=== PATIENT | female | born 1990 | race Caucasian/White ===

== ENCOUNTER 2018-05-24 10:39 | Emergency (ER) | payer MEDICAID, OTHER ==
[2018-05-24] MEDS: morphine LIQ (10 MG/5 ML) CUP PO (11:01)
[2018-05-24] MEDS: ONDANSETRON (ODT) 4 MG TAB ODT (11:04)
== END 2018-05-24 11:28 | disposition home or self-care (01) ==
LOC: FTE 10:39
DX: K08.9 Disorder of teeth and supporting structures, unspecified (principal)
CPT/HCPCS: 99283; Z7502